=== PATIENT | female | born 1935 | race Caucasian/White ===

== ENCOUNTER 2016-10-14 09:36 | Emergency (ER) | payer MEDICARE, OTHER ==
[~2016-10-14] VITALS: Ht 152.4 cm; Wt 57.0 kg
[~2016-10-14 09:36] MED LIST: ALBUAER3 INH; AMLO10TA2 PO; ATOR10TA15 PO; DULE200A INH; HYDR-3516 PO; LEVO100T5 PO; METO50TA11 PO; NITR0.4S SL; OMEG100046 PO; PROT40TA PO; UBID10CA PO; VITA2000 PO
[2016-10-14 09:44] VITALS: BP 184/94; PULSE 62; RESP 16; TEMP 98; O2SAT 98
[2016-10-14] MEDS ORDERED: MORPHINE SULFATE 4 MG/ML INJ IV PUSH ONE (09:45)
[2016-10-14] MEDS ORDERED: ONDANSETRON HCL 4 MG/2 ML VIAL IVP ONE (09:45)
--- NOTE | 2016-10-14 09:51 | PD ---
HPI Chief Complaint: Musculoskeletal Complaint Time Seen by Provider: 09:42 Travel History International Travel<30 days: No Contact w/Intl Traveler<30days: No Traveled to known affect area: No History of Present Illness HPI 81-year-old female complains of left low back pain. Patient states the pain started this morning. Patient denies any injury this morning. Patient has history of recurrent low back pain has been receiving epidural sore injection [facility] and [facility]. Last epidural injection was October 04, 2016. Patient is taking hydrocodone 5/325 at home as needed for back pain. Patient states that the pain is severe pain localized left low back area. Patient complained of muscular spasm of the left thigh also. Patient denies any focal weakness or numbness of lower extremity. Patient denies any problem with bladder or bowel control. Patient denies abdominal pain. Patient denies any nausea vomiting diarrhea. Patient denies dysuria or frequency. Patient has history of CAD, hyperlipidemia, scoliosis, [place], hypothyroidism, hypertension. PFSH Past Medical History Arthritis: Yes (?) Asthma: Yes Autoimmune Disease: No Heart Rhythm Problems: No Cancer: No Cardiac Catheterization: Yes Cardiovascular Problems: Yes High Cholesterol: Yes Chemotherapy: No Chest Pain: No Congestive Heart Failure: No COPD: No Cerebrovascular Accident: Yes Coronary Artery Disease: Yes Diabetes: No Diminished Hearing: No Endocrine: Yes GERD: No Genitourinary: No Hypertension: Yes Immune Disorder: No Kidney Stones: No Musculoskeletal: Yes (SCOLIOSIS, "BAD DISKS IN MY NECK") Neurologic: No Psychiatric: No Reproductive: No Respiratory: Yes Immunizations Current: Yes Migraines: No Myocardial Infarction: Yes (IN 1996) Radiation Therapy: No Renal Failure: No Seizures: No Sickle Cell Disease: No Sleep Apnea: No Thyroid Disease: Yes Ulcer: No Past Surgical History Abdominal Surgery: Yes (HERNIA REPAIR,gallbladder removed) AICD: No Appendectomy: Yes Arteriovenous Shunt: No Cardiac Surgery: No Ear Surgery: No Endocrine Surgery: No Eye Surgery: No Genitourinary Surgery: Yes Gynecologic Surgery: Yes (ECTOPIC , OVARIAN CYSTS REMOVED) Hysterectomy: Yes Insulin Pump: No Joint Replacement: No Oral Surgery: No Pacemaker: No Thoracic Surgery: No Social History Alcohol Use: Yes (DAILY, DENIES ANY USE TODAY) Tobacco Use: Yes (QUIT 10 YRS AGO) Substance Use: No Allergies-Medications (Allergen,Severity, Reaction): Coded Allergies: Celebrex (Verified Allergy, Severe, 10/14/16) Codeine (Verified Allergy, Severe, Nausea/Vomiting, 10/14/16) Sulfa (Verified Allergy, Severe, RASH, 10/14/16) RASH AND HIGH FEVER Lescol (Verified Adverse Reaction, Severe, QUESTIONABLE ALLERGY, 10/14/16) Reported Meds & Prescriptions Reported Meds & Active Scripts Active Reported Atorvastatin (Atorvastatin Calcium) 10 Mg Tab 10 Mg PO HS Vitamin D3 (Cholecalciferol) 2,000 Unit Cap 2,000 Units PO DAILY Amlodipine (Amlodipine Besylate) 10 Mg Tab 10 Mg PO DAILY Hydrocodone-Acetaminophen 5-325 mg Tab 1 Tab PO Q6H PRN Coenzyme Q10 (Ubidecarenone) 10 Mg Capsule 200 Mg PO DAILY Fish Oil 1,000 mg Softgel (Taylor-3/Dha/Epa/Fish Oil) 1,000 Mg Capsule 1 Cap PO DAILY Nitrostat SL (Nitroglycerin) 0.4 Mg Subl 0.4 Mg SL DIRECTED PRN 1 tablet under the tongue as needed for chest pain. Repeat every 5 minutes for a total of 3 DOSES or call 911 if NO relief. Dulera 120 Act Inh (Mometasone-Formoterol 120 Act Inh) 200-5 Mcg/Act Inh 2 Puff INH BID Metoprolol Succinate ER 24 HR (Metoprolol Succinate) 50 Mg Tab 50 Mg PO DAILY Proair Hfa 8.5 GM Inh (Albuterol Sulfate) 90 Mcg/Act Aer 2 Puff INH Q6H PRN 108 mcg/actuation Protonix (Pantoprazole Sodium) 40 Mg Tab 40 Mg PO DAILY Levothyroxine (Levothyroxine Sodium) 100 Mcg Tab 100 Mcg PO DAILY Review of Systems General / Constitutional: No: Fever Eyes: No: Visual changes HENT: No: Headaches Cardiovascular: No: Chest Pain or Discomfort Respiratory: No: Shortness of Breath Gastrointestinal: No: Abdominal Pain Genitourinary: No: Dysuria Musculoskeletal: No: Pain Skin: No Rash Neurologic: No: Weakness Psychiatric: No: Depression Endocrine: No: Polydipsia Hematologic/Lymphatic: No: Easy Bruising Physical Exam Narrative GENERAL: Well-nourished, well-developed patient. SKIN: Focused skin assessment warm/dry. HEAD: Normocephalic. EYES: No scleral icterus. No injection or drainage. NECK: Supple, trachea midline. No JVD or lymphadenopathy. CARDIOVASCULAR: Regular rate and rhythm without murmurs, gallops, or rubs. RESPIRATORY: Breath sounds equal bilaterally. No accessory muscle use. GASTROINTESTINAL: Abdomen soft, non-tender, nondistended. MUSCULOSKELETAL: No cyanosis, or edema. BACK: Moderate tenderness on palpation of the left lower lumbar area, without obvious deformity. No CVA tenderness. Negative straight leg raising. Neurologic exam normal. Data Data Last Documented VS Vital Signs Date Time Temp Pulse Resp B/P Pulse Ox O2 Delivery O2 Flow Rate FiO2 10/14/16 10:00 16 97 Room Air 10/14/16 09:44 98.0 62 184/94 Orders Basic Metabolic Panel (Bmp) (10/14/16 09:43) Complete Blood Count With Diff (10/14/16 09:43) Urinalysis - C+S If Indicated (10/14/16 09:43) Ct Abd/Pel W/O Iv Contrast (10/14/16 09:43) Iv Access Insert/Monitor (10/14/16 09:43) Ecg Monitoring (10/14/16 09:43) Oximetry (10/14/16 09:43) Morphine Inj (Morphine Inj) (10/14/16 09:45) Ondansetron Inj (Zofran Inj) (10/14/16 09:45) Ct Lumb Spine W/O Contrast (10/14/16 09:43) Labs Laboratory Tests Test 10/14/16 10/14/16 10:20 10:25 White Blood Count 10.9 TH/MM3 Red Blood Count 5.24 MIL/MM3 Hemoglobin 13.8 GM/DL Hematocrit 42.5 % Mean Corpuscular Volume 81.1 FL Mean Corpuscular Hemoglobin 26.4 PG Mean Corpuscular Hemoglobin 32.5 % Concent Red Cell Distribution Width 15.6 % Platelet Count 233 TH/MM3 Mean Platelet Volume 9.1 FL Neutrophils (%) (Auto) 75.5 % Lymphocytes (%) (Auto) 16.0 % Monocytes (%) (Auto) 6.5 % Eosinophils (%) (Auto) 1.4 % Basophils (%) (Auto) 0.6 % Neutrophils # (Auto) 8.2 TH/MM3 Lymphocytes # (Auto) 1.7 TH/MM3 Monocytes # (Auto) 0.7 TH/MM3 Eosinophils # (Auto) 0.2 TH/MM3 Basophils # (Auto) 0.1 TH/MM3 CBC Comment DIFF FINAL Differential Comment Sodium Level 142 MEQ/L Potassium Level 3.4 MEQ/L Chloride Level 105 MEQ/L Carbon Dioxide Level 29.1 MEQ/L Anion Gap 8 MEQ/L Blood Urea Nitrogen 12 MG/DL Creatinine 0.84 MG/DL Estimat Glomerular Filtration 65 ML/MIN Rate Random Glucose 117 MG/DL Calcium Level 9.3 MG/DL Urine Color STRAW Urine Turbidity CLEAR Urine pH 7.5 Urine Specific [place] 1.010 Urine Protein NEG mg/dL Urine Glucose (UA) NEG mg/dL Urine Ketones NEG mg/dL Urine Occult Blood NEG Urine Nitrite NEG Urine Bilirubin NEG Urine Leukocyte Esterase SMALL Urine WBC 0-2 /hpf Urine Squamous Epithelial 0-5 /hpf Cells Microscopic Urinalysis Comment CULT NOT INDICATED MDM Medical Decision Making Medical Screen Exam Complete: Yes Emergency Medical Condition: Yes Interpretation(s) 10:56 AM. CBC within normal limit. Potassium 3.4. UA positive for small leukocyte. Negative microscopic 11:17 AM. Last Impressions Lumbar Spine CT 10/14/16942 Signed Impressions: Service Date/Time: September 09:56 - CONCLUSION: Advanced degenerative disc disease and facet arthropathy resulting in a degenerative scoliotic deformity. Multilevel foraminal encroachment due to asymmetric disc space narrowing and marginal spurring as described above. Right posterolateral disc protrusion at L3-4 and L4-5 with neuroforaminal encroachment. Broad- based posterior disc protrusion L4-5 with significant central spinal stenosis. Significant left foraminal encroachment at L5-S1. No acute fracture Curtis Sebastian MD Abdomen/Pelvis CT 10/14/16942 Signed Impressions: Service Date/Time: September 09:56 - CONCLUSION: 1. Uncomplicated colonic diverticulosis. 2. Scattered stable low density lesions within the liver consistent with a probable cyst or small hemangiomas. 3. Bilateral renal cysts. 4. Degenerative changes and scoliosis of the lumbar spine. Scar Quijano MD Differential Diagnosis Differential diagnosis including musculoskeletal, nephrolithiasis, pyelonephritis, lumbar spine fracture, HNP. Narrative Course 81-year-old female with severe left low back pain. History of chronic low back pain. Morphine 2 mg IV. Zofran 4 mg IV. Toradol 30 mg IV. Diagnosis Primary Impression: Acute exacerbation of chronic low back pain Patient Instructions: General Instructions Additional Instructions: Continue with hydrocodone as needed for pain. Follow with personal physician and Dr. Perez. Return if worse. Med/Other Pt SpecificInfo: No Change to Meds Disposition: 01 DISCHARGE HOME Condition: Stable Don Rashid MD Oct 14, 2016 09:51
[2016-10-14 10:00] VITALS: RESP 16; O2SAT 97
[2016-10-14 10:42] LABS: AUTOMATED NEUTROPHIL # 8.2 TH/MM3 (1.8-7.7); BASOPHIL # 0.1 TH/MM3 (0-0.2); BASOPHIL % 0.6 % (0.0-2.0); EOSINOPHIL # 0.2 TH/MM3 (0-0.4); EOSINOPHIL % 1.4 % (0.0-4.0); HEMATOCRIT 42.5 % (35.0-46.0); LYMPHOCYTE # 1.7 TH/MM3 (1.0-4.8); MEAN CELL VOLUME 81.1 FL (80.0-100.0); MEAN CORPUSCULAR HEMOGLOBIN 26.4 PG (27.0-34.0); MEAN CORPUSCULAR HGB CONC 32.5 % (32.0-36.0); MONO % 6.5 % (0.0-8.0); NEUT % 75.5 % (16.0-70.0); PLATELET COUNT 233 TH/MM3 (150-450); RED BLOOD COUNT 5.24 MIL/MM3 (4.00-5.30); RED CELL DISTRIBUTION WIDTH 15.6 % (11.6-17.2); WHITE BLOOD COUNT 10.9 TH/MM3 (4.0-11.0)
--- NOTE | 2016-10-14 10:44 | RADHPO ---
EXAM DATE/TIME: 10/14/2016 09:56 [facility] COMPARISON: CT ABDOMEN & PELVIS W CONTRAST, September 10, 2013, 20:20. INDICATIONS : Left flank pain. Left low back pain. ORAL CONTRAST: No oral contrast ingested. RADIATION DOSE: 10.51 CTDIvol (mGy) MEDICAL HISTORY : Cerebrovascular disease. Myocardial infarction. Hernia, hiatal.Hypertension. SURGICAL HISTORY : Appendectomy. Hysterectomy.Hernia repair. ENCOUNTER: Initial ACUITY: 1 day PAIN SCALE: 3/10 LOCATION: Left flank TECHNIQUE: Volumetric scanning of the abdomen and pelvis was performed. Using automated exposure control and ad justment of the mA and/or kV according to patient size, radiation dose was kept as low as reasonably achievable to obtain optimal diagnostic quality images. FINDINGS: LOWER LUNGS: Fibrotic scarring is noted in the lung bases. LIVER: There are scattered low density lesions within the liver which are indeterminate on this unenhanced s can. In these are stable compared to the previous examination in August of 2013 and are likely benign cy sts or small hemangiomas. No biliary obstruction is noted. The gallbladder is unremarkable. SPLEEN: Normal size without lesion. PANCREAS: Within normal limits. KIDNEYS: Normal in size and shape. Multiple stable renal cysts are noted. There is no solid mass, stone, or h ydronephrosis. ADRENAL GLANDS: Within normal limits. VASCULAR: There is no aortic aneurysm. BOWEL/MESENTERY: Uncomplicated colonic diverticulosis is noted. ABDOMINAL WALL: Ventral abdominal wall hernia repair with mesh is noted. RETROPERITONEUM: There is no lymphadenopathy. BLADDER: No wall thickening or mass. REPRODUCTIVE: Within normal limits. INGUINAL: There is no lymphadenopathy or hernia. MUSCULOSKELETAL: Degenerative changes and scoliosis of the lumbar spine are noted. CONCLUSION: 1. Uncomplicated colonic diverticulosis. 2. Scattered stable low density lesions within the liver consistent with a probable cyst or small hem angiomas. 3. Bilateral renal cysts. 4. Degenerative changes and scoliosis of the lumbar spine. Scar Quijano MD on October 14, 2016 at 10:26 Board Certified Radiologist. This report was verified electronically.
[2016-10-14 10:45] LABS: HEMO FLAGS DIFF FINAL; POTASSIUM 3.4 MEQ/L (3.5-5.1)
[2016-10-14 10:49] LABS: BICARBONATE 29.1 MEQ/L (21.0-32.0)
[2016-10-14 10:54] LABS: BLOOD, URINE NEG (NEG); GLUCOSE,URINE NEG (NEG); KETONE, URINE NEG (NEG); NITRITE,URINE NEG (NEG); PH, URINE 7.5 (5.0-8.5)
--- NOTE | 2016-10-14 10:58 | RADHPO ---
EXAM DATE/TIME: 10/14/2016 09:56 [facility] COMPARISON: No previous studies available for comparison. INDICATIONS : Left flank pain. Left low back pain. RADIATION DOSE: ; Reconstructed from previous dataset MEDICAL HISTORY : Cerebrovascular disease. Myocardial infarction. Hernia, hiatal.Hypertension. SURGICAL HISTORY : Appendectomy. Hysterectomy.Hernia repair. ENCOUNTER: Initial ACUITY: 1 day PAIN SCALE: 7/10 LOCATION: Left low back TECHNIQUE: Volumetric scanning of the lumbar spine was performed. Multiplanar reconstructions in the sagittal, coronal and oblique axial planes were performed. Using automated exposure control and adjustment of the mA and/or kV according to patient size, radiation dose was kept as low as reasonably achievable t o obtain optimal diagnostic quality images. FINDINGS: Alignment: A severe levoscoliotic deformity is noted of the lumbar spine. Evaluation of the AP alignment demonst rates very slight anterolisthesis of L3 on L4 and L4 and L5. Osseous structures and facet joints: Vertebral bodies are intact without evidence of acute compression fracture. There is significant don inal spondylosis. Moderate to severe arthropathy is identified. There is evidence of joint space narrowing, subchondral sclerosis and marginal spurring. The most advanced changes are identified on the right at the L2-3, L3-4, L4-5 and L5-S1 levels. Moderate to severe arthropathy is also seen in the left at L3-4, L4-5 and L5-S1. There are no destructive bone lesions. Intervertebral disc spaces: Moderate to severe degenerative disc disease is noted. L1-2: There is degenerative disc disease with asymmetric disc space narrowing. There is near-total co llapse of the disc on the right with evidence of marginal spondylosis. Moderate to severe right amrita inal encroachment is noted. There is no evidence of epidural disc herniation. L2-3: Severe degenerative disc disease with asymmetric disc space narrowing. There is near-total adamaris apse of the disc on the right side. Endplate sclerosis and marginal spondylosis is noted. Moderate ri ght foraminal encroachment is noted. There is no evidence of epidural disc herniation. L3-4: Severe degenerative disc disease with asymmetric disc space narrowing. There is collapse of the disc on the right side there is significant marginal spondylosis is seen along the right side of the disc. Significant foraminal encroachment is noted on the right. Increased soft tissue within the rig ht neural foramen suggests focal disc protrusion. L4-5: Moderate to severe degenerative disease with generalized disc space narrowing. Broad based disc protrusion is causing anterior epidural and bilateral neural foraminal effacement. Significant centr al spinal stenosis is noted. L5-S1: Moderate to severe degenerative disc disease with asymmetric disc space narrowing worse on the left. There is significant left-sided foraminal encroachment. Neurologic structures: Neural foraminal encroachment with significant nerve root compression is identified as described christen dempsey. High-grade central spinal stenosis is noted at L4-5. CONCLUSION: Advanced degenerative disc disease and facet arthropathy resulting in a degenerative scoliotic deformity. Multilevel foraminal encroachment due to asymmetric disc space narrowing and marginal spurring as bear cribed above. Right posterolateral disc protrusion at L3-4 and L4-5 with neuroforaminal encroachment. Broad-based posterior disc protrusion L4-5 with significant central spinal stenosis. Significant left foraminal encroachment at L5-S1. No acute fracture Curtis Sebastian MD on October 14, 2016 at 10:38 Board Certified Radiologist. This report was verified electronically.
[2016-10-14 11:01] LABS: URINE COLOR STRAW (YELLW/STRAW)
[2016-10-14 11:02] LABS: COMMENT (UR) CULT NOT INDICATED; CULTURE IF INDICATED CULT NOT INDICATED; SQUAMOUS EPITHELIAL CELL URINE 0-5 /hpf (0-5); WBC, URINE 0-2 /hpf (0-5)
[2016-10-14 11:30] VITALS: RESP 16
[2016-10-14] MEDS ORDERED: KETOROLAC TROMETHAMINE 30 MG/ML (IVP) VIAL IV PUSH ONE (11:30)
[2016-10-14 11:47] VITALS: BP 159/74
[2016-10-29] MEDS ORDERED: FLUT1SPR5 EACH NARE (09:05)
== END 2016-10-14 11:53 | disposition home or self-care (01) ==
LOC: PHED 09:36
DX: M51.36 Other intervertebral disc degeneration, lumbar region (principal); M51.26 Other intervertebral disc displacement, lumbar region; M48.06 Spinal stenosis, lumbar region; E78.00 Pure hypercholesterolemia, unspecified; Z86.73 Personal history of transient ischemic attack (TIA), and cerebral infarction without residual deficits; I25.10 Atherosclerotic heart disease of native coronary artery without angina pectoris; I25.2 Old myocardial infarction
CPT/HCPCS: 72131; 74176; 80048; 81001; 85025; 96374; 96375; 99285; J1885; J2270; J2405

== ENCOUNTER → 2017-07-27 | Day surgery (SDC) | payer MEDICARE, OTHER ==
[~2017-07-27] MED LIST changes: +FLUT1SPR5 EACH NARE; +LIDOCAINE HCL 1% 30 ML VIAL NERV BLOCK ONE; +METO1TAB9 PO; -METO50TA11 PO; +PROPOFOL 200 MG/20 ML AMP IV ONE; +SODIUM CHLORIDE 0.9% 10 ML VIAL ONE; +TRIAMCINOLONE ACETONIDE 40 MG/ML VIAL NERV BLOCK ONE
--- NOTE | 2017-07-27 10:57 | M6 ---
cc: Brittany Perez MD DATE: 07/27/2017 PROCEDURE: Fluoroscopically guided right S1 transforaminal epidural steroid injection. History and physical was completed and signed. Consent was signed. Procedure site was marked. Medications were listed and reconciled. Pain score was recorded. Allergies were noted. Time out was taken. Fluoroscopy time was recorded where applicable. Sedation was administered or directed by Dr. Perez. The patient was given oxygen. The patient was monitored by a registered nurse. Total procedure time was greater than 15 minutes. PROCEDURE NOTE: An IV was started, blood pressure cuff, pulse oximeter and EKG were applied. The patient was placed in the prone position on a Mckinley table, sedated with small amounts of Versed and propofol titrated to effect. Vital signs were monitored and remained stable throughout the procedure. The patient remained responsive throughout the procedure. The lumbar area was scrubbed with antimicrobial solution, prepped with 10% Betadine solution, and draped with sterile drapes. Fluoroscopy was used in both the AP and lateral projections to clearly visualize the right S1 neural foramen. Then separate sterile 22 gauge, 3 1/2-inch Chiba needles were advanced under fluoroscopic guidance into the dorsal-most aspect of each foramen. There was negative aspiration for blood or CSF. There were no reported paresthesias by the patient. There was no washout of 2 mL of Omnipaque. Then after waiting approximately 60 seconds, the patient was slowly given 8 mL of 0.5% Xylocaine, 60 mg of Kenalog at that location. Following this, the patient was taken to the recovery room with stable vital signs, neurologically intact. Brittany Perez MD WRM/TL , 10:45 AM , 10:56 AM
== END | disposition home or self-care (01) ==
LOC: PHSDC 09:06
PROVIDERS: ATTEND Pain Medicine Interventional Pain Medicine
DX: M54.5 Low back pain (principal); M79.661 Pain in right lower leg
CPT/HCPCS: 64483; 99152; J3301